=== PATIENT | male | born 1940 | race Caucasian/White ===

== ENCOUNTER → 2017-07-24 | Outpatient (CLI) | payer MEDICARE, BC ==
[~2017-07-24] VITALS: Ht 170.2 cm; Wt 90.4 kg
[~2017-07-24] MED LIST: ALEVE 220MG220 MG PO; AMLODIPINE5 MG PO; ASPIRIN E.C. 8181 MG PO; BENADRYL25 M2 PO; BENICAR; BENICAR40 MG PO; CEPHALEXIN500 M1 PO; FLOMAX 0.40.4 MG/CAP PO; FLONASEALLERGY NS; GLUCOPHAGE1000 MG PO; GLUCOPHAGE500 MG/TAB PO; IBUPROFEN800 M1 PO; METFORMIN500 MG PO; MULTIPLE VITAMI1 CAP PO; NAPROSYN 2250 MG/TAB PO; NORVASC 10MG10 MG PO; OMEGA-3 1000 MG1 CAP PO; PREDNISONE20 MG PO; SIMVASTATIN5 MG PO; TYLENOL 8 HR PO; TYLENOL PM EXTR1 TA1 PO; ULTRAM 50MG TAB50 MG PO; ZOCOR 20MG20 MG PO; ZOCOR 40MG40 MG PO; ZYRTEC 10MG10 MG PO
[2017-07-24 13:52] VITALS: BP 165/93; PULSE 86
[2017-07-24 15:30] VITALS: BP 153/92; PULSE 86
[2017-07-24 15:45] VITALS: BP 144/89; PULSE 82
== END ==
LOC: COL.RAD 09:55
DX: M54.5 Low back pain (principal)
CPT/HCPCS: J3301

== ENCOUNTER → 2017-08-30 | Outpatient (CLI) | payer MEDICARE, BC ==
[~2017-08-30] VITALS: Ht 170.2 cm; Wt 88.7 kg
[2017-08-30 09:29] VITALS: BP 154/88; PULSE 83
[2017-08-30 10:40] VITALS: BP 116/83; PULSE 82
== END ==
LOC: COL.RAD 08-23 09:30
DX: M54.5 Low back pain (principal); G89.29 Other chronic pain
CPT/HCPCS: J3301

== ENCOUNTER 2017-12-12 13:12 | Emergency (ER) | payer MEDICARE, BC ==
[~2017-12-12] VITALS: Ht 172.7 cm; Wt 90.9 kg
[2017-12-12 13:15] VITALS: BP 146/79; TEMP 99.3
[2017-12-12 13:58] VITALS: PULSE 82
== END 2017-12-12 14:00 | disposition home or self-care (01) ==
LOC: COL.ER 13:12
DX: S09.90XA Unspecified injury of head, initial encounter (principal); S01.01XA Laceration without foreign body of scalp, initial encounter; E11.9 Type 2 diabetes mellitus without complications; Z79.82 Long term (current) use of aspirin; Z79.84 Long term (current) use of oral hypoglycemic drugs; W22.8XXA Striking against or struck by other objects, initial encounter; Y92.009 Unspecified place in unspecified non-institutional (private) residence as the place of occurrence of the external cause

== ENCOUNTER 2019-03-04 16:32 | Emergency (ER) | payer MEDICARE, BC ==
[~2019-03-04] VITALS: Ht 175.3 cm; Wt 91.4 kg
[2019-03-04 16:42] VITALS: BP 169/84; TEMP 98.5
[2019-03-04 17:26] VITALS: PULSE 90
== END 2019-03-04 17:27 | disposition home or self-care (01) ==
LOC: COL.ER 16:32
DX: S61.412A Laceration without foreign body of left hand, initial encounter (principal); Z79.51 Long term (current) use of inhaled steroids; Z79.84 Long term (current) use of oral hypoglycemic drugs; Z79.82 Long term (current) use of aspirin; Z23 Encounter for immunization; W26.8XXA Contact with other sharp object(s), not elsewhere classified, initial encounter

== ENCOUNTER → 2019-09-01 | Outpatient (CLI) | payer MEDICARE, BC ==
[~2019-09-01] MED LIST changes: +TURMERIC500 MG PO
[2019-09-01 09:51] VITALS: BP 159/90; PULSE 92
[2019-09-01 10:36] VITALS: BP 139/83; PULSE 84
== END ==
LOC: COL.RAD 09:30
DX: M54.41 Lumbago with sciatica, right side (principal); G89.29 Other chronic pain
CPT/HCPCS: J3301

== ENCOUNTER 2020-02-15 17:01 | Emergency (ER) | payer MEDICARE, BC ==
[~2020-02-15] VITALS: Ht 172.7 cm; Wt 83.6 kg
[2020-02-15 17:08] VITALS: BP 156/86; TEMP 98.4
[2020-02-15 18:09] VITALS: PULSE 86
== END 2020-02-15 18:16 | disposition home or self-care (01) ==
LOC: COL.ER 17:01
DX: S61.210A Laceration without foreign body of right index finger without damage to nail, initial encounter (principal); I10 Essential (primary) hypertension; E11.9 Type 2 diabetes mellitus without complications; E78.5 Hyperlipidemia, unspecified; Z79.82 Long term (current) use of aspirin; Z79.84 Long term (current) use of oral hypoglycemic drugs; W23.0XXA Caught, crushed, jammed, or pinched between moving objects, initial encounter; Y92.89 Other specified places as the place of occurrence of the external cause

== ENCOUNTER → 2020-05-21 | Outpatient (CLI) | payer MEDICARE, BC | LOC: COL.RAD 13:30 | DX: M47.816 Spondylosis without myelopathy or radiculopathy, lumbar region (principal); M48.061 Spinal stenosis, lumbar region without neurogenic claudication; M41.86 Other forms of scoliosis, lumbar region ==

== ENCOUNTER → 2020-06-30 | Outpatient (CLI) | payer MEDICARE, BC | LOC: MHCPAIN 08:37 | DX: M47.816 Spondylosis without myelopathy or radiculopathy, lumbar region (principal); M54.5 Low back pain; M21.372 Foot drop, left foot; G89.29 Other chronic pain | CPT/HCPCS: G0463 ==

== ENCOUNTER 2020-08-20 10:30 | Outpatient (RCR) | payer MEDICARE, BC | END 2020-08-22 | disposition home or self-care (01) | LOC: WSPT | DX: M21.372 Foot drop, left foot (principal); M54.9 Dorsalgia, unspecified; G89.29 Other chronic pain ==

== ENCOUNTER 2020-09-16 12:45 | Outpatient (RCR) | payer MEDICARE, BC | END 2020-11-23 | disposition home or self-care (01) | LOC: WSPT | DX: M48.061 Spinal stenosis, lumbar region without neurogenic claudication (principal) ==

== ENCOUNTER 2021-07-12 09:00 | Outpatient (RCR) | payer MEDICARE, BC | END 2021-07-14 | disposition home or self-care (01) | LOC: WSC | DX: M54.16 Radiculopathy, lumbar region (principal); M21.372 Foot drop, left foot; Z98.890 Other specified postprocedural states ==

== ENCOUNTER 2021-08-04 08:15 | Outpatient (RCR) | payer MEDICARE, BC | END 2021-08-13 | disposition home or self-care (01) | LOC: WSPT | DX: M54.16 Radiculopathy, lumbar region (principal); M21.372 Foot drop, left foot; Z98.890 Other specified postprocedural states ==

== ENCOUNTER → 2021-09-13 | Outpatient (RCR) | payer MEDICARE, BC | END | disposition home or self-care (01) | LOC: WSC → WSPT 08-17 09:30 → WSC 13:30 | DX: M54.16 Radiculopathy, lumbar region (principal); M21.372 Foot drop, left foot; Z98.890 Other specified postprocedural states ==

== ENCOUNTER 2021-09-22 09:45 | Outpatient (RCR) | payer MEDICARE, BC | END 2021-10-13 | disposition home or self-care (01) | LOC: WSPT | DX: M54.16 Radiculopathy, lumbar region (principal); M21.372 Foot drop, left foot; Z98.890 Other specified postprocedural states ==